=== PATIENT | female | born 1970 | race Caucasian/White ===

== ENCOUNTER 2018-03-17 09:42 | Day surgery (SDC) | payer OTHER, SELFPAY ==
[2018-03-10 11:31] VITALS: BP 154/94; PULSE 86; RESP 16; TEMP 36.7; O2SAT 98; BMI 31.6
--- NOTE | 2018-03-10 11:57 | SDCEKG_ITS ---
Test Reason : Blood Pressure : / mmHG Vent. Rate : 082 BPM Atrial Rate : 082 BPM P-R Int : 170 ms QRS Dur : 136 ms QT Int : 424 ms P-R-T Axes : 027 -35 081 degrees QTc Int : 495 ms Normal sinus rhythm Left axis deviation Left bundle branch block Abnormal ECG Confirmed by ANATOLY HAYDEN, CHARMAINE ([id number]), editor map PARKER HAND ([id number]) on 03/15/2018 2:12:15 PM Referred By: Samia Chan Confirmed By:CHARMAINE LEDBETTER MD
[2018-03-10 12:36] LABS: Hematocrit 38.8 % (37-47); Hemoglobin 13.4 g/dl (12.0-15.0); Mean Corp Hgb Conc 34.5 g/gl (32-36); Mean Corpuscular Hgb 30.9 pg (27.0-32.0); Mean Corpuscular Volume 89.6 fL (81-99); Mean Platelet Vol. 9.5 fl (6.2-12.0); Platelet Count 275 K/mm3 (150-450); RBC Distribution Width CV 12.7 % (11.6-14.6); RBC Distribution Width SD 40.8 fl (35.1-43.9); Red Blood Count 4.33 M/mm3 (4.2-5.4); Scan Indicated on CBC? Y/N NO; White Blood Count 5.7 K/mm3 (4.4-11.0)
[2018-03-10 13:12] LABS: Hemoglobin A1c 6.7 % (4.2-6.3)
[2018-03-10 13:16] LABS: Anion Gap 7 (5-15); BUN 14 mg/dL (7-18); BUN/Creat Ratio 15.9 RATIO (10-20); Calcium,Total 8.9 mg/dL (8.5-10.1); Chloride 101 mmol/L (98-107); Creatinine, Serum 0.88 mg/dL (0.55-1.02); EST Glomerular Filtration Rate 73 mL/min (>60); Est Glom Filt Rate - Afr Amer 89 mL/min (>60); Estimated Creatinine Clearance 63.18 ml/min; Glucose 126 mg/dL (74-106); Potassium 3.6 mmol/L (3.5-5.1); Sodium Level 136 mmol/L (136-145)
[2018-03-17] VITALS (10 sets, daily range): BP systolic 122–143; BP diastolic 73–97; PULSE 90–106; RESP 16; TEMP 36.4–37.3; O2SAT 95–100; BMI 31.6; BMI 31.8
--- NOTE | 2018-03-17 06:00 | HP.PCM_ITS ---
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 Required: No Is patient in pain?: No Allergies shellfish derived Allergy (Severe, Verified 12/23/17 12:01) Anaphylaxis codeine Allergy (Mild, Verified 12/23/17 12:01) Nausea/Vom/Diarrhea Medications hydrochlorothiazide 12.5 mg tablet 12.5 mg PO DAILY 12/23/17 [History Confirmed 12/23/17] lisinopril 10 mg tablet 10 mg PO DAILY 12/23/17 [History Confirmed 12/23/17] ondansetron HCl 4 mg tablet 4 mg PO BID-TID PRN 12/23/17 [History Confirmed 12/23/17] ranitidine 150 mg tablet 150 mg PO DAILY 12/23/17 [History Confirmed 12/23/17] rizatriptan 10 mg tablet 10 mg PO ONCE 12/23/17 [History Confirmed 12/23/17] Is last menstrual period known: Yes Last Menstral Period: 12/11/17 Post menopausal: No Patient : No : No PFSH Medical History GERD (gastroesophageal reflux disease) (Acute) Hyperglycemia (Acute) Hyperlipemia (Acute) Raynaud disease (Acute) Retinal vein occlusion of right eye (Acute) TIA (transient ischemic attack) (Acute ~2012) Uterine Ablation (Acute ~2003) Hypertension (Chronic) Surgical History H/O section (Acute ~2002) H/O wisdom tooth extraction (Acute) History of tonsillectomy (Acute) History of tubal ligation (Acute ~2002) Family History Grandfather CVA (cerebral vascular accident) Father Hypertension Combined hyperlipidemia Social History adopted: No household members: family housing: house number of children: 2 current occupational status: employed 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 occupation: [employer] 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 she has periods that are regular, has a history of heavy menses that improved with the ablation but now over the last 9-12 months she has developed lower pelvic pain and significant dyspareunia. she was checked by GI and it was not felt to be the source of her pain Female Reproductive History Last Menstral Period: 12/11/17 Pregancy History 2 Elective abortions Hx Para 2 Spontaneous abortions Hx # Term Pregnancies Ectopic pregnancies Hx # Pregnancies Multiple births # of living children 2 Past Pregnancies Del. Date Name GA/Weeks Outcome Route Bth Weight Gen Labor Lgth Anesthesia Del Locatn Provider FOB Unknown 2000- Radha 38 live - full term 6lbs 6oz Female epidural [facility]- [facility] Unknown 2002- Dom 38 live - full term 8lbs 2oz Male epidural [facility] Delivery Date: On 12/23/17 @ 12:09 Ashley Aguayo GDM, extended labor resulted in C/S Delivery Date: On 12/23/17 @ 12:07 Ashley Aguayo GDM ROS Const Constitutional: Denies poor appetite, headache(s), fever(s), increased appetite, weight gain, weight loss or fatigue ENT ENT: Denies dry mouth GI GI: Reports as per HPI; denies vomiting, nausea, abdominal pain or constipation : Denies nipple discharge Skin Skin/Breast: Denies hair loss, change in hair, dry skin, breast pain, breast skin changes, breast lump or nipple discharge Exam Const General: cooperative, healthy appearing, comfortable, no acute distress, well developed Nutritional Appearance: average body habitus Orientation: alert HENAK Head: normal to inspection, normocephalic Ears: hearing grossly normal bilaterally, external ears normal Nose: external nose normal, nares normal Face and sinus: normal facial exam Neck Neck: normal visual inspection, trachea midline, no lymphadenopathy Thyroid: thyroid normal Resp Effort & Inspection: normal respiratory effort Musc Other: gross motor intact no deficits, full bilateral strength Skin General: no rashes or lesions noted Neuro Motor: muscle tone normal throughout Assessment & Plan Problems 1. Chronic female pelvic pain R10.2; G89.29 plan lavh bs cysto Plan plan lavh bs cysto. discussed surgical risks including risks of anesthesia, infection, bleeding, injury to bowel, bladder or blood vessels, and patient wishes to proceed with surgery.
[2018-03-17] MEDS: Acetaminophen 500 MG Tablet 1000 MG PO ×2 (10:28→17:48)
[2018-03-17] MEDS: Gabapentin 600 MG Tablet PO (10:29)
[2018-03-17] MEDS: Phenazopyridine 95 MG Tablet 190 MG PO (10:29)
[2018-03-17] MEDS: Celecoxib 200 MG Capsule 400 MG PO (10:29)
[2018-03-17] MEDS: Scopolamine 1mg/72hr Patch 1 PATCH TRANSDERM. (10:31)
[2018-03-17] MEDS: Enoxaparin 40 MG/0.4 ML Syringe SC (10:33)
[2018-03-17 10:50] LABS: Bedside Glucose 185 mg/dL (70-110)
--- NOTE | 2018-03-17 12:00 | HYST_PTH ---
PATIENT: YONATAN SALINAS LOC: [facility] [place] U#:[id number] AGE/SX: 47/F ROOM: RE03/17/[address]: Dr. Samia Chan MD : [id number] BED: DIS: 03/17/2018 SPEC #: [id number] RECD: 03/17/18 16:06 STATUS: MAGGIE RELaury #: [id number] WENDY: 03/17/18 12:[address]: Samia Chan DEPT: SURGICAL PATHOLOGY RECD BY: Schuyler Faustin ENTERED: 03/18/18 08:21 SP TYPE: HYSTERECT OTHR DR: Dr. Remigio Arguelles MD Tissues: Uterus, NOS Procedures: Surgery Specimen Level V HEADER OPERATION: ERAS, hysterectomy, lap-assisted vaginal, salpingectomy PRE-OP DIAGNOSIS: Uterine fibroid, chronic pelvic pain TISSUE SUBMITTED: Uterus, fallopian tubes MICROSCOPIC DIAGNOSIS Uterus and bilateral fallopian tubes, vaginal hysterectomy and bilateral salpingectomy: Cervix - mild chronic cystic cervicitis. Endometrium - early secretory endometrium. Myometrium - intramural leiomyoma (1 cm in diameter). Bilateral fallopian tubes - no pathologic diagnosis. SJ:[place] 03/21/18 MICROSCOPIC DESCRIPTION Slides are reviewed. GROSS DESCRIPTION Received in fixative is one container labeled with the patient's name and designated uterus. The specimen consists of a uterus with attached cervix and attached right and left fallopian tubes. The uterus with cervix measures 8.5 x 7.5 x 4 cm and weighs 117 gm. The specimen has previously been opened along its anterior surface. The endocervical canal measures 3 cm in length and is grossly unremarkable. The elongated endometrial cavity measures 4 cm in length and 2.2 cm in greatest width. The endometrium is reddish-long and measures up to 0.1 cm in thickness. Sections reveal a firm, long-white rubbery nodule measuring 1 cm in diameter and grossly consistent with leiomyoma. The right and left fallopian tubes are similar in appearance and have average lengths of 5 cm and average diameters of 0.5 cm. The fimbriated ends have normal villous appearance. Doughnut Machine Operator sections are submitted in nine cassettes as follows: 1 - anterior cervix, 2 - posterior cervix, 3 & 4 - anterior uterine wall, 5 & 6 - posterior uterine wall, 7 - myometrial mass, 8 - right fallopian tube, 9 - left fallopian tube. / AM:[place] 03/18/18 TC:1 [facility]: [id number]
[2018-03-17] MEDS: Lidocaine/D5W 2,000 MG/250 ML IV.SOLN 2000 MG (13:30)
--- NOTE | 2018-03-17 13:38 | OP.PCM_ITS ---
Problem List (1) Uterine fibroid Status: Acute (2) Chronic female pelvic pain Status: Chronic Comment: plan lavh bs cysto Report of Operation Date of Procedure: 03/17/18 Pre-Operative Diagnosis: aub pelvic pain Post-Operative Diagnosis: same Surgery/Procedure Performed:: lavh bs cysto Description of Surgical Findings:: nl uterus with fibroids and normal ovaries cheese sprayer: Linda Hoff Type of Anesthesia:: General Special Medications: cefoxitin Specimen's removed: uterus tubes Drains: simeon Estimated Blood Loss (mL): 100cc Fluids Replaced: crystalloid Description of Procedure: 1 patient received preoperative antibiotics and SCDs were on preoperatively. Patient was taken back to the operating room and placed in the dorsal lithotomy position. General anesthesia was induced and patient was prepped and draped in normal sterile fashion. Uterine manipulator was placed inside the uterus and Simeon catheter placed in the bladder. The umbilicus was grasped with towel clamps and an intraumbilical incision was made after injecting with quarter percent Marcaine and a Veress needle entered into the abdomen confirmed to be intra-abdominal with a low opening pressure. Abdomen was insufflated with CO2 gas and the Veress needle removed and the 5 mm trocar was placed under direct visualization without complication. Right and left lower quadrants were transilluminated and injected with quarter percent Marcaine and 5 mm ports placed under direct visualization. Pelvis was well visualized see operative f indings for additional information. Bilateral fallopian tubes were identified and transected with the LigaSure device across the mesosalpinx to the level of the utero-ovarian ligament which was also transected with the LigaSure device. The broad ligament was opened up by transecting the round ligament bilaterally and skeletonizing the uterine vessels bilaterally and creating a bladder flap using the LigaSure device. The uterine arteries were transected bilaterally with good visualization of the bladder and the ureters were seen to be inferior lateral to the operative area. Attention was then paid to the vaginal portion of the procedure and the cervix was grasped with April clamps and circumferentially injected with dilute vasopressin. A circumferential incision was made and the vaginal mucosa was mobilized off posteriorly and the cul-de-sac entered into sharply and a longneck speculum placed. The anterior cul-de-sac was then identified and entered into sharply. The uterosacral ligaments were clamped cut and suture ligated with 0 Monocryl bilaterally followed by the cardinal ligaments which were clamped cut and suture ligated bilaterally with 0 Monocryl. The uterus serially descended and was removed without difficulty with minimal morcellation. Pelvic sidewall pedicles were checked and noted to have excellent hemostasis. The vaginal mucosa was reapproximated incorporating the posterior peritoneum. This was reapproximated using 0 Vicryl [id number] sutures. Excellent hemostasis was noted. The cystoscopy was then performed and bilateral ureteral strong spray was noted and the bladder was noted to have no abnormality or lesions seen. Simeon catheter was replaced and then attention paid to the abdominal portion of the procedure again. The pelvis and cul-de-sac was well visualized and no significant active bleeding noted . Pressure was taken down and the areas visualized and noted of excellent hemostasis. All ports were removed under direct visualization without complication and the abdomen was desufflated of air. The instruments removed from the abdomen and the vagina vaginal sweep was negative. Port sites on the abdomen were closed with 4-0 Monocryl interrupted sutures and Steri's and windows were applied. She was awoken and taken recovery in stable condition. Grafts/Implants Used: none - Complications none - Admit VTE Documentation VTE Present on Admission: No VTE Mechan Device Prophylaxis: SCD's
--- NOTE | 2018-03-17 13:44 | DCINST_ITS ---
Discharge Diet: No Restrictions Discharge Activity: Return to Normal Activity, May Not Drive, May Shower May resume sexual activity in: 6-8 weeks Call your doctor if your incision/area has: Continuous Slow Oozing, Sudden Increased Bleeding, Increased Pain/ Swelling, Increased Redness, Foul Smelling Discharge Call your doctor if you observe: Fever of 101 or Higher, Inability to urinate, Inability to have a bowel movement, Using more than one pad per hour Allergies/Adverse Reactions: Allergies shellfish derived Allergy (Severe, Verified 03/10/18 11:06) Anaphylaxis codeine Adverse Reaction (Mild, Verified 03/16/18 16:44) Nausea/Vom/Diarrhea Medications to take at Discharge hydrochlorothiazide 12.5 mg tablet 12.5 mg PO DAILY 12/23/17 lisinopril 10 mg tablet 10 mg PO DAILY 12/23/17 ondansetron HCl 4 mg tablet 4 mg PO BID-TID PRN 12/23/17 ranitidine 150 mg tablet 300 mg PO BID 12/23/17 rizatriptan 10 mg tablet 10 mg PO ONCE PRN 12/23/17 Multivit,Calc,Mins/Iron/Folic [Women's Daily Formula Caplet] 1 each PO DAILY 03/10/18 Naproxen [Naprosyn] 250 - 500 mg PO Q8H PRN PRN #30 tablet 03/17/18 Oxycodone HCl/Acetaminophen [Percocet 5-325] 1 - 2 tablet PO Q4H PRN PRN 7 Days #15 tablet 03/17/18 The following prescriptions were given: Oxycodone HCl/Acetaminophen [Percocet 5-325] 1 - 2 tablet PO Q4H PRN PRN 7 Days #15 tablet PRN Reason: Pain Naproxen [Naprosyn] 250 - 500 mg PO Q8H PRN PRN #30 tablet PRN Reason: MILD PAIN Primary Care Physician: Remigio Arguelles MD [Primary Care Provider] - Test Results: Test results from this visit will be discussed in further detail at your follow- up appointment, if applicable. Please Follow Up With: Samia Chan MD - [phone]
[2018-03-17] MEDS: Bupivacaine 0.25% 30 ML Vial (14:20)
[2018-03-17] MEDS: Vasopressin 20 UNITS/ML Vial (14:20)
[2018-03-17 15:36] LABS: Bedside Glucose 157 mg/dL (70-110)
[2018-03-17] MEDS: Ketorolac 15 MG/ML Vial IV (15:41)
[2018-03-17] MEDS: Lactated Ringers 1,000 ML 100 ML IV (17:02)
--- NOTE | 2018-03-17 17:59 | NURSING ---
Nurse assists pt. up to chair.
== END 2018-03-17 21:45 | disposition home or self-care (01) ==
LOC: SDC 09:43 → AC 09:44 → MS3 13:35
PROVIDERS: Anesthesiology; Family Provider Family Medicine; PCP Family Medicine; Referring Provider Obstetrics & Gynecology; Visit Provider Obstetrics & Gynecology
PROC: 0UT9FZZ Resection of Uterus, Via Natural or Artificial Opening With Percutaneous Endoscopic Assistance (ICD-10-PCS; CPT 52000; principal; 2018-03-17 11:35)
DX: D25.1 Intramural leiomyoma of uterus (principal); N72 Inflammatory disease of cervix uteri; K21.9 Gastro-esophageal reflux disease without esophagitis; E78.5 Hyperlipidemia, unspecified; I73.00 Raynaud's syndrome without gangrene; Z86.73 Personal history of transient ischemic attack (TIA), and cerebral infarction without residual deficits; I10 Essential (primary) hypertension; Z79.899 Other long term (current) drug therapy
CPT/HCPCS: 52000; 58552; 36415; 80048; 82962; 83036; 85027; 86850; 86900; 88307; 93005; J7050; J7120; J2405

== ENCOUNTER 2018-06-09 16:50 | Outpatient (RCR) | payer OTHER, SELFPAY ==
[2018-04-25 15:22] VITALS: BMI 31.8
== END 2018-06-09 23:59 ==
LOC: DC 16:50
PROVIDERS: Family Provider Family Medicine; PCP Family Medicine; Visit Provider Family Medicine
DX: E11.9 Type 2 diabetes mellitus without complications (principal)
CPT/HCPCS: G0108

== ENCOUNTER 2018-06-21 14:58 | Outpatient (RCR) | payer OTHER, SELFPAY ==
[2018-04-25 15:22] VITALS: BMI 31.8
== END 2018-07-10 23:59 ==
LOC: DC 14:58
PROVIDERS: Family Provider Family Medicine; PCP Family Medicine; Visit Provider Family Medicine
DX: E11.9 Type 2 diabetes mellitus without complications (principal); Z71.3 Dietary counseling and surveillance
CPT/HCPCS: 97802

== ENCOUNTER 2018-09-07 16:51 | Outpatient (RCR) | payer OTHER, SELFPAY ==
[2018-04-25 15:22] VITALS: BMI 31.8
== END 2018-09-09 23:59 ==
LOC: DC 16:51
PROVIDERS: Family Provider Family Medicine; PCP Family Medicine; Visit Provider Family Medicine
DX: E11.9 Type 2 diabetes mellitus without complications (principal); Z71.3 Dietary counseling and surveillance
CPT/HCPCS: 97803

== ENCOUNTER 2018-11-07 17:00 | Outpatient (RCR) | payer OTHER, SELFPAY ==
[2018-04-25 15:22] VITALS: BMI 31.8
== END 2018-11-09 23:59 ==
LOC: DC 17:00
PROVIDERS: Family Provider Family Medicine; PCP Family Medicine; Visit Provider Family Medicine
DX: E11.9 Type 2 diabetes mellitus without complications (principal); Z71.3 Dietary counseling and surveillance
CPT/HCPCS: 97803

== ENCOUNTER 2018-12-06 17:17 | Outpatient (RCR) | payer OTHER, SELFPAY ==
[2018-04-25 15:22] VITALS: BMI 31.8
== END 2018-12-10 23:59 ==
LOC: DC 17:17
PROVIDERS: Family Provider Family Medicine; PCP Family Medicine; Visit Provider Family Medicine
DX: E11.9 Type 2 diabetes mellitus without complications (principal); Z71.3 Dietary counseling and surveillance
CPT/HCPCS: 97803

== ENCOUNTER 2019-01-09 16:43 | Outpatient (RCR) | payer OTHER, SELFPAY ==
[2018-04-25 15:22] VITALS: BMI 31.8
== END 2019-01-09 23:59 ==
LOC: DC 16:43
PROVIDERS: Family Provider Family Medicine; PCP Family Medicine; Visit Provider Family Medicine
DX: E11.9 Type 2 diabetes mellitus without complications (principal); Z71.3 Dietary counseling and surveillance
CPT/HCPCS: 97803

== ENCOUNTER 2019-02-14 16:37 | Outpatient (RCR) | payer OTHER, SELFPAY ==
[2018-04-25 15:22] VITALS: BMI 31.8
== END 2019-03-11 23:59 ==
LOC: DC 16:37
PROVIDERS: Family Provider Family Medicine; PCP Family Medicine; Visit Provider Family Medicine
DX: Z71.3 Dietary counseling and surveillance (principal); E11.9 Type 2 diabetes mellitus without complications
CPT/HCPCS: 97803

== ENCOUNTER 2019-03-14 16:52 | Outpatient (RCR) | payer OTHER, SELFPAY ==
[2018-04-25 15:22] VITALS: BMI 31.8
== END 2019-04-11 23:59 ==
LOC: DC 16:52
PROVIDERS: Family Provider Family Medicine; PCP Family Medicine; Visit Provider Family Medicine
DX: Z71.3 Dietary counseling and surveillance (principal); E11.9 Type 2 diabetes mellitus without complications
CPT/HCPCS: 97803

== ENCOUNTER 2019-04-17 08:20 | Outpatient (RCR) | payer OTHER, SELFPAY ==
[2018-04-25 15:22] VITALS: BMI 31.8
== END 2019-05-12 23:59 ==
LOC: DC 08:20
PROVIDERS: Family Provider Family Medicine; PCP Family Medicine; Visit Provider Family Medicine
DX: Z71.3 Dietary counseling and surveillance (principal); E11.9 Type 2 diabetes mellitus without complications
CPT/HCPCS: 97803

== ENCOUNTER 2019-06-26 17:01 | Outpatient (RCR) | payer OTHER, SELFPAY ==
[2018-04-25 15:22] VITALS: BMI 31.8
== END 2019-07-11 23:59 ==
LOC: DC 17:01
PROVIDERS: Family Provider Family Medicine; PCP Family Medicine; Visit Provider Family Medicine
DX: Z71.3 Dietary counseling and surveillance (principal); E11.9 Type 2 diabetes mellitus without complications
CPT/HCPCS: 97803

== ENCOUNTER 2019-07-31 16:00 | Outpatient (RCR) | payer OTHER, SELFPAY ==
[2018-04-25 15:22] VITALS: BMI 31.8
== END 2019-08-10 23:59 ==
LOC: DC 16:00
PROVIDERS: Family Provider Family Medicine; PCP Family Medicine; Visit Provider Family Medicine
DX: Z71.3 Dietary counseling and surveillance (principal); E11.9 Type 2 diabetes mellitus without complications
CPT/HCPCS: G0270

== ENCOUNTER 2019-09-05 16:17 | Outpatient (RCR) | payer OTHER, SELFPAY ==
[2018-04-25 15:22] VITALS: BMI 31.8
== END 2019-09-05 23:59 | disposition home or self-care (01) ==
LOC: DC 16:17
PROVIDERS: Family Provider Family Medicine; PCP Family Medicine; Visit Provider Family Medicine
DX: Z71.3 Dietary counseling and surveillance (principal); E11.9 Type 2 diabetes mellitus without complications
CPT/HCPCS: G0270

== ENCOUNTER → 2022-05-02 | Outpatient (CLI) | payer OTHER, SELFPAY ==
[2022-05-02 10:16] LABS: Absolute Lymphocyte Count 1.75 X10^3/uL (0.83-4.51); Absolute Neutrophil Count 3.1 X10^3/uL (2.0-7.7); Basophil# 0.07 X10^3/uL; Basophil% 1.2 % (0-1); Eosinophil# 0.19 X10^3/uL; Eosinophils% 3.3 % (0-5); Hematocrit 42.5 % (37-47); Hemoglobin 14.5 g/dL (12.0-15.0); Lymphocyte # 1.75 X10^3/ul (0.83-4.51); Lymphocyte % 30.6 % (19-41); Mean Corp Hgb Conc 34.1 g/dL (32-36); Mean Corpuscular Hgb 29.8 pg (27.0-32.0); Mean Corpuscular Volume 87.3 fL (81-99); Mean Platelet Vol. 9.8 fl (6.2-12.0); Monocyte% 10.5 % (0-10); NRBC Flagged by Analyzer 0 % (0-5); Neutrophil % 54.2 % (47-70); Platelet Count 334 K/mm3 (150-450); RBC Distribution Width CV 11.9 % (11.6-14.6); RBC Distribution Width SD 37.9 fl (35.1-43.9); Red Blood Count 4.87 M/mm3 (4.2-5.4); White Blood Count 5.7 K/mm3 (4.4-11.0)
[2022-05-02 10:50] LABS: Hemoglobin A1c 5.9 % (3.8-5.6)
[2022-05-02 10:51] LABS: ALB/GLOB Ratio 1.2 RATIO (0.9-2.4); AST(SGOT) 18 U/L (15-37); Alanine Aminotransfer ALT/SGPT 41 U/L (13-56); Alkaline Phosphatase 82 U/L (45-117); Anion Gap 8 (5-15); BUN 12 mg/dL (7-18); BUN/Creat Ratio 11.7 RATIO (10-20); Calcium,Total 8.8 mg/dL (8.5-10.1); Chloride 105 mmol/L (98-107); Cholesterol 123 mg/dL (200); Creatinine, Serum 1.03 mg/dL (0.55-1.02); EST Glomerular Filtration Rate 60 mL/min (>60); Est Glom Filt Rate - Afr Amer 73 mL/min (>60); Free T3 2.8 pg/mL (2.18-3.98); Globulin 3.2 g/dL (2.2-4.2); Glucose 132 mg/dL (74-106); High Density Lipoprotein 38 mg/dL; Potassium 3.6 mmol/L (3.5-5.1); Protein, Total 7.2 g/dL (6.4-8.2); Sodium Level 140 mmol/L (136-145); T4 Free Direct 1.02 ng/dL (0.76-1.46); Thyroid Stim Hormone (TSH) 1.79 uIU/mL (0.358-3.74); Triglycerides 101 mg/dL; Very Low Density Lipoprotein 20 mg/dL (5-40)
[2022-05-04 08:54] LABS: Insulin 11.8 mU/L (2.6-37.6); Vitamin D,25 Hydroxy 36.7 ng/mL
[2022-05-04 18:41] LABS: C-Peptide 3.9 ng/mL (1.1-4.4)
== END | disposition home or self-care (01) ==
LOC: LAB 09:28
PROVIDERS: PCP Internal Medicine; Referring Provider Internal Medicine; Visit Provider Internal Medicine
DX: I10 Essential (primary) hypertension (principal); E11.9 Type 2 diabetes mellitus without complications; K21.9 Gastro-esophageal reflux disease without esophagitis; E88.81 Metabolic syndrome and other insulin resistance
CPT/HCPCS: 36415; 80053; 80061; 82306; 83036; 83525; 84439; 84443; 84481; 84681; 85025

== ENCOUNTER → 2023-05-31 | Outpatient (CLI) | payer OTHER, SELFPAY ==
--- OUTSIDE RECORDS SUMMARY | 2023-05-31 09:03 | XMS RPT_ITS | CCD ---
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 Name Role Phone ELIS ALEXEYROBERT ISSA Attending Unavailable MCKENZIE PATEL Referring Unav ailable FELIPE ARGUELLES Primary Care Unavailable Felipe Arguelles Primary Care Provider Felipe Arguelles MD Primary Care Provider [facility], [place] Unavailable Felipe Arguelles MD Primary Care Provider [facility], [place] Unavailable Felipe Arguelles MD Primary Care Provider [facility], [place] Unavailable Felipe Arguelles MD Primary Care Provider [facility], [place] Unavailable CHAU JOVEL Referring Unavailab FELIPE Kohler Primary Care Unavailable FELIPE ARGUELLES Primary Care Unavailable CHAU JOVEL Referring Unavailab CHAU Fowler Attending Unavailab le FELIPE ARGUELLES Primary Care Unavailable CHAU JOVEL Attending Unavailab le Allergies Allergy Classification Reported Allergen(s) Allergy Type Date of Onset Reaction(s) Facility (15 sources) Codeine; Translations: [Unknown] Drug Allergy 5 Vomiting [facility] Repository (2 sources) SHELLFISH CONTAINING PRODUCTS; Translations: [SHELLFISH CONTAINING PRODUCTS] Propensity to adverse reactions to drug (disorder) 0 [facility] Repository (13 sources) atorvastatin; Translations: [ATORVASTATIN] Drug Allergy 0 Myalgia [facility] Work Phone: (13 sources) Shellfish; Translations: [SHELLFISH DERIVED] Drug Allergy 7 Swelling [facility] Work Phone: Medications Current Medications Medication Drug Class(es) Dates Sig (Normalized) Sig (Original) 0.5 ml dulaglutide 1.5 mg/ml auto-injector (11 sources) GLP-1 Receptor Agonist Start: 02-21-2021 End: 10-30-2022 inject 0.75 mg by subcutaneous injection every week dulaglutide (TRULICITY) 0.75 mg/0.5 mL pen injector Indications: Controlled type 2 diabetes mellitus without complication, without long-term current use of insulin (HCC) Inject 0.75 mg subcutaneously one time a week. Inject dose once per week. Discard Pen After 6 mL 3 10/30/2021 10/30/2022 Active Completed/Discontinued Medications Medication Drug Class(es) Dates Sig (Normalized) Sig (Original) aspirin 81 mg delayed release oral tablet (11 sources) Platelet Aggregation Inhibitor, Nonsteroidal Anti-inflammatory Drug Start: 06-13-2018 take 1 tablet by mouth once daily aspirin, enteric coated (ECOTRIN LOW STRENGTH) 81 mg EC tablet Take 1 tablet by mouth once daily. 0 06/13/2018 Active Problems Active Problems Problem Classification Problem Date Documented Date Episodic/Chronic Adjustment disorders (11 sources) Adjustment disorder; Translations: [Adjustment disorder, unspecified] Onset: 03-31-2013 03-31-2013 Chronic Conduction disorders (14 sources) Left bundle branch block; Translations: [Left bundle-branch block, unspecified] Onset: 03-11-2018 03-11-2018 Chronic Diabetes mellitus without complication (15 sources) Type 2 diabetes mellitus without complication; Translations: [Type 2 diabetes mellitus without complications] Onset: 03-11-2018 03-11-2018 Chronic Disorders of lipid metabolism (17 sources) Hyperlipidemia; Translations: [Hyperlipidemia, unspecified] Onset: 06-27-2012 06-27-2012 Chronic Esophageal disorders (20 sources) Gastroesophageal reflux disease; Translations: [Gastro-esophageal reflux disease without esophagitis] Onset: 06-27-2012 06-27-2012 Chronic Essential hypertension (16 sources) Essential hypertension; Translations: [Essential (primary) hypertension] Onset: 05-03-2017 05-03-2017 Chronic Headache; including migraine (11 sources) Migraine without aura; Translations: [Migraine without aura, not intractable, without status migrainosus] Onset: 10-06-2007 05-10-2017 Chronic Nutritional deficiencies (12 sources) Vitamin D deficiency; Translations: [Vitamin D deficiency, unspecified] Onset: 06-20-2013 06-20-2013 Chronic Other circulatory disease (11 sources) Raynaud's phenomenon; Translations: [Raynaud's syndrome without gangrene] Onset: 06-27-2012 06-27-2012 Chronic Other lower respiratory disease (2 sources) Dyspnea on exertion; Translations: [Other forms of dyspnea] Episodic Other nervous system disorders (1 source) Paresthesia of hand ; Translations: [Numbness and tingling in right hand] Episodic Other screening for suspected conditions (not mental disorders or infectious disease) (3 sources) Patient encounter status; Translations: [Encounter for other screening for malignant neoplasm of breast] Episodic Retinal detachments; defects; vascular occlusion; and retinopathy (11 sources) Hemorrhage of left retina; Translations: [Retinal hemorrhage, left eye] Onset: 03-21-2009 03-21-2009 Chronic Transient cerebral ischemia (11 sources) Transient cerebral ischemia; Translations: [Transient cerebral ischemic attack, unspecified] Onset: 02-24-2012 02-24-2012 Chronic Past or Other Problems Problem Classification Problem Date Documented Da te Episodic/Chronic Other acquired deformities (11 sources) Spondylolysis; Translations: [Spondylolysis, site unspecified] Onset: 09-24-2015 09-24-2015 Episodic Other gastrointestinal disorders (10 sources) Alteration in bowel elimination; Translations: [Change in bowel habit] Onset: 11-26-2017 11-26-2017 Episodic Other gastrointestinal disorders (11 sources) Diarrhea; Translations: [Diarrhea, unspecified] Onset: 11-26-2017 11-26-2017 Episodic Other gastrointestinal disorders (1 source) Altered bowel function; Translations: [Change in bowel habit] Onset: 11-26-2017 11-26-2017 Episodic Other skin disorders (11 sources) Acne; Translations: [Other acne] Onset: 08-15-2007 08-15-2007 Episodic Other skin disorders (11 sources) Hirsutism; Translations: [Hirsutism] Onset: 10-06-2007 10-06-2007 Episodic Spondylosis; intervertebral disc disorders; other back problems (11 sources) Chronic low back pain; Translations: [Chronic bilateral low back pain without sciatica] Onset: 09-24-2015 09-24-2015 Episodic Results Test Name Value Interpretation Reference Range Facil ity Vital Signs Date Time Vital Sign Value Performing Clinician Ottoniel buchanan 01-14-2022 14:44-0400 Body height 160 cm Chau Jovel DO Work Phone: [facility] 01-14-2022 14:44-0400 Body weight 74.84 kg Chau Jovel DO Work Phone: [facility] 01-14-2022 14:44-0400 Diastolic blood pressure 82 mm[Hg] Chau Jovel DO Work Phone: [facility] 01-14-2022 14:44-0400 Heart rate 95 /min Chau Jovel DO Work Phone: [facility] 01-14-2022 14:44-0400 SaO2% (BldA) [Mass fraction] 100 % Chau Jovel DO Work Phone: [facility] 01-14-2022 14:44-0400 Systolic blood pressure 126 mm[Hg] Chau Jovel DO Work Phone: [facility] Encounters Encounter Date Encounter Type Care Provider Facility Start: 05-10-2023 End: 05-10-2023 ambulatory FELIPE ARGUELLES Facility:[facility] Start: 04-26-2023 End: 04-26-2023 ambulatory CHAU JOVEL Facility:[facility] Start: 02-03-2023 ambulatory Felipe Arguelles MD Work Phone: [facility] Start: 02-01-2023 End: 02-01-2023 ambulatory FELIPE ARGUELLES Facility:[facility] Start: 02-21-2022 Refill Felipe Arguelles MD Work Phone: [facility] [place] Procedures Date Procedure Procedure Detail Performing Clinician Start: 02-10-2022 Myocardial spect mul tiple studies Chau Jovel DO Work Phone: Start: 12-24-2021 End: 12-24-2021 Screening mammography bi 2-view breast inc cad Felipe Arguelles MD Work Phone: Start: 07-11-2021 Lipid panel [facility] Start: 11-05-2020 Mammography Felipe Sanford MD Work Phone: Start: 11-13-2019 Follow-up visit Start: 10-25-2019 Follow-up visit Start: 10-19-2019 Follow-up visit Start: 09-25-2019 Adult depression scr eening assessment Felipe Arguelles MD Work Phone: Start: 12-06-2017 Colonoscopy Felipe Sanford MD Work Phone: Plan of Treatment Date Care Activity Detail Author Start: 12-07-2027 Colonoscopy COLONOSCOPY [facility] Start: 12-07-2027 COLORECTAL CANCER SCREENING COLORECTAL CANCER SCREENING [facility] Start: 02-02-2024 BP Controlled (<130/80) BP Controlled (<130/80) [facility] Start: 01-17-2023 Hepatitis C antibody, confirmatory test DILATED RETINAL EXAM [facility] Start: 12-24-2022 Mammography [facility] Start: 12-11-2022 Covid-19 Vaccine ( season) Covid-19 Vaccine () [facility] Start: 12-11-2022 Influenza [facility] Start: 09-23-2022 ANNUAL PCP TEAM CHRONIC DISEASE VISIT ANNUAL PCP TEAM CHRONIC DISEASE VISIT [facility] Start: 07-11-2022 Hepatitis B surface antibody level LDL CHOLESTEROL [facility] Start: 06-30-2022 ANNUAL PCP TEAM CHRONIC DISEASE VISIT ANNUAL PCP TEAM CHRONIC DISEASE VISIT [facility] Start: 04-12-2022 Depression Assessment Depression Assessment [facility] Start: 03-17-2022 3 comp foot exam completed DIABETIC FOOT EXAM [facility] Start: 03-12-2022 Hepatitis B screening URINE ALBUMIN:CREATININE RATIO [facility] Start: 12-11-2021 Influenza vaccination [facility] Start: 11-05-2021 Mammography MAMMOGRAM [facility] Start: 10-22-2021 COVID-19 VACCINE (4 - Booster for Pfizer series) COVID-19 VACCINE (4 - Booster for Pfizer series) [facility] Start: 10-22-2021 SHINGRIX VACCINE (1 of 2) SHINGRIX VACCINE (1 of 2) [facility] Start: 09-23-2021 End: 11-23-2021 25-hydroxyvitamin D3 [Mass/volume] in Serum or Plasma VITAMIN D 25 HYDROXY Lab Routine Vitamin D deficiency Expected: 09/23/2021, Expires: 11/23/2021 [facility] Work Phone: Immunizations Immunization Date Immunization Notes Care Provider Fa cili 02-16-2021 COVID-19 vaccine, ag e 12+ yr (PFIZER-BIONTECH - PURPLE TOP) Felipe Arguelles MD Work Phone: [facility] 07-27-2020 COVID-19 vaccine, ag e 12+ yr (PFIZER-BIONTECH - PURPLE TOP) Felipe Arguelles MD Work Phone: [facility] Work Phone: 07-06-2020 COVID-19 vaccine, ag e 12+ yr (PFIZER-BIONTECH - PURPLE TOP) Felipe Arguelles MD Work Phone: [facility] Work Phone: 12-01-2018 influenza virus vaccine, unspecified formulation Felipe Arguelles MD Work Phone: [facility] Payers Date Payer Category Payer Unknown MMO MMO [employer] PPO [id number] 2022-Present [phone] [address] [place] [address] PPO [id number] 2022 Unknown [id number] 2017 Private Health Insurance [id number] 2017 Private Health Insurance AETNA A ETNA CHOICE POS/POSII/PREMIER CARE/PREMIER CARE PLUS xxxxxxxxxx 2017-Present xxxxxxxxxx [id number] 2013 Private Health Insurance AET[employer] A ETNA CHOICE POS II [id number] 2013-Present [phone] [address] [place] [address] POS [id number] 2013 Private Health Insurance AET[employer] A ETNA CHOICE POS II [id number] 2013-Present [phone] [address] [place] [address] POS [id number] 1970 Unknown [id number] Social History Date Type Detail Facility Start: 11-03-[address] [facility] Start: 1970 Sex Assigned At Not on file [facility] Start: 06-20-2021 End: 02-10-2022 Exposure to SARS-CoV-2 (event) Not sure [facility] Start: 03-09-2012 [facility] tobacco [facility] Start: 06-30-2021 End: 01-14-2022 Alcohol intake Current drinker of alcohol (finding) [facility] Start: 09-25-2019 History SDOH Alcohol Frequency 3 [facility] Start: 09-25-2019 End: 03-16-2021 History SDOH Alcohol Std Drinks 2 [facility] Start: 09-25-2019 History SDOH Social Connections Phone 4 [facility] Start: 09-25-2019 History SDOH Social Connections Meetings 1 [facility] Start: 09-25-2019 History SDOH Physica l Activity DPW 6 [facility] Start: 09-25-2019 History SDOH Stress 5 [facility] Start: 09-25-2019 Education 17 [facility] Start: 03-09-2012 Tobacco use and exposure Smoke less tobacco non-user [facility] Start: 09-25-2019 End: 02-01-2023 History of Social function [facility] Start: 09-25-2019 End: 02-01-2023 Social connection and isolation panel [facility] Do you belong to any clubs or organizations such as jewish groups, unions, fraternal or athletic groups, or school groups? No [facility] Are you now , , , , never or living with a partner? [facility] How often to you hav e a drink containing alcohol? 2-4 times a month [facility] How many standard dr inks containing alcohol do you have on a typical day? 3 or 4 [facility] How often do you hav e 6 or more drinks on 1 occasion? Monthly [facility] How hard is it for y ou to pay for the very basics like food, housing, medical care, and heating Not hard at all [facility] Do you feel stress - tense, restless, nervous, or anxious, or unable to sleep at night because your mind is troubled all the time - these days [OSQ] Very much [facility] (I/We) worried wheth er (my/our) food would run out before (I/we) got money to buy more. Never true [facility] Start: 10-24-2018 Sexual orientation Heterosexual (rohit limon) [facility] Medical Equipment Procedure Code Equipment Code Equipment Origin al Text Equipment Identifier Dates Start: 06-06-2021 Clinical Notes 11-29-2017 to 05-10-2023 Telephone Encounter - Latonia Chua LPN - 02/23/2022 10:15 AM SANGITA Sosa - 02/10/2022 8:45 AM EDTTelephone Encounter - Aracelis Beard RN - 02/09/2022 1:24 PM EDT Note Date & Type Note Facility 05-10-2023 Note HNO ID: [id number] Author: CHAU JOVEL, DO Service: ? Author Type: Physician Type: Progress Notes Filed: 05/10/2023 17:10 Note Text: [facility] SECTION [facility]AL CARDIOLOGY [facility] OUTPATIENT VISIT DATE May 10, 2023 HISTORY OF PRESENT ILLNESS: Ms. Salinas is a 52 year old female. The patient returns for follow-up secondary history of chronic left bundle branch block pattern with normal nuclear stress imaging as well as hypertension, hyperlipidemia/hypertriglyceridemi a, previous TIA and type 2 diabetes. She unfortunately has developed myalgias again from her latest statin i.e. pravastatin. She denies chest discomfort, dyspnea, orthopnea, paroxysmal nocturnal dyspnea, palpitations, near-syncope or syncope. PLAN AND RECOMMENDATIONS: The patient remained stable without apparent symptoms of suggest angina or cardiac decompensation. She unfortunately has myalgias again. Will therefore stop pravastatin. Previously, she also off of statin therapy because severely elevated triglycerides for which we will start fenofibrate after a washout from pravastatin. Will follow-up with her in 2 to 3 months time to review response to therapy. Dietary and lifestyle modification was otherwise reemphasized. Vitals: BP 124/80 Pulse 89 Ht 160 cm (5' 2.99 ) Wt 79.1 kg (174 lb 6.1 oz) LMP 11/16/2017 SpO2 99% BMI 30.90 kg/m? Physical Exam Vitals reviewed. Constitutional: Appearance: She is well-developed. HENT: Head: Normocephalic and atraumatic. Eyes: Pupils: Pupils are equal, round, and reactive to light. Neck: Thyroid: No thyromegaly. Vascular: No JVD. Cardiovascular: Rate and Rhythm: Normal rate and regular rhythm. Heart sounds: Normal heart sounds. No murmur heard. No friction rub. No gallop. Pulmonary: Effort: Pulmonary effort is normal. No respiratory distress. Breath sounds: Normal breath sounds. No wheezing or rales. Abdominal: General: Bowel sounds are normal. Palpations: Abdomen is soft. Musculoskeletal: General: Normal range of motion. Cervical back: Normal range of motion and neck supple. Skin: General: Skin is warm and dry. Coloration: Skin is not pale. Neurological: Mental Status: She is alert and oriented to person, place, and time. Cranial Nerves: No cranial nerve deficit. Psychiatric: Behavior: Behavior normal. Thought Content: Thought content normal. Judgment: Judgment normal. Review of Systems Constitutional: Negative for activity change and fatigue. HENT: Negative for ear pain and facial swelling. Eyes: Negative for pain and discharge. Respiratory: Negative for chest tightness and shortness of breath. Cardiovascular: Positive for palpitations. Negative for chest pain and leg swelling. Gastrointestinal: Negative for abdominal pain, blood in stool, nausea and vomiting. Endocrine: Negative for cold intolerance and heat intolerance. Genitourinary: Negative for frequency and hematuria. Musculoskeletal: Negative for arthralgias and gait problem. Skin: Negative for color change, pallor and rash. Allergic/Immunologic: Negative for immunocompromised state. Neurological: Negative for dizziness, syncope, light-headedness and headaches. Hematological: Negative for adenopathy. Does not bruise/bleed easily. Psychiatric/Behavioral: Negative for confusion. The patient is not nervous/anxious. PAST MEDICAL HISTORY Diagnosis Date Abnormal maternal glucose tolerance, antepartum 2000AND 2002 History of gestational diabetes Hyperlipidemia Hypertension, essential 05/03/2017 Migraine Raynaud's phenomenon TIA (transient ischemic attack) 2011 PAST SURGICAL HISTORY Procedure Laterality Date DELIVERY ONLY 2002 , low cervical, Bilateral Tubal Ligation COLONOSCOPY FLX DX W/COLLJ SPEC WHEN PFRMD 12/06/2017 Colonoscopy ESOPHAGOGASTRODUODENOSCOPY TRANSORAL DIAGNOSTIC 08/2012,09/21/2013 EGD ESOPHAGOGASTRODUODENOSCOPY TRANSORAL DIAGNOSTIC 12/06/2017 EGD HYSTERECTOMY HX 03/2018 Kept ovaries LIG/TRNSXJ FLP TUBE ABDL/VAG APPR UNI/BI Tubal ligation PAST SURGICAL HISTORY OF 2004 Uterine Ablation for DUB TONSILLECTOMY PRIMARY/SECONDARY AGE 13/> 1999 Tonsillectomy Social History Tobacco Use Smoking status: Never Smokeless tobacco: Never Substance Use Topics Alcohol use: Yes Comment: SOCIALLY Drug use: No FAMILY HISTORY Problem Relation Age of Onset Asthma Mother Hypertension Father Cancer Paternal Grandmother Pancreatic Breast Cancer Maternal Grandmother Diabetes Maternal Grandfather Stroke Maternal Grandfather Stroke Paternal Grandfather ALLERGIES Allergen Reactions Codeine Vomiting Lipitor [Atorvastat* Myalgia Shellfish Derived Swelling CURRENT MEDICATIONS: Coenzyme Q10 (ULTRA COQ10) 75 mg cap Take by mouth. POTASSIUM ORAL Take by mouth. pravastatin (PRAVACHOL) 20 mg tablet Take 1 tablet by mouth daily at bedtime. lisinopril (ZE (more content not included)... [facility] 02-03-2023 Note Patient Outreach (IN [facility]MM[facility]) SCARLET SALINAS ([id number]) 1970 F Date Time Provider Department 02/03/23 FELIPE ARGUELLES During your visit today, we recorded the following information about you: Allergies As of Date: 02/03/2023 Noted Allergy Reaction CODEINE 02/09/2005 11 - Vomiting LIPITOR (ATORVASTATIN) 12/11/2019 17 - Myalgia SHELLFISH DERIVED 06/01/2016 7 - Swelling Date Reviewed: 02/01/2023 Reviewed by: Chau Jovel DO - Fully Assessed Visit Diagnosis:Encounter for screening mammogram for breast cancer [Z12.31] Order(s):[facility] SCREENING [[id number]] Order #: [id number] FUTURE Prescriptions as of 02/08/2023 - Coenzyme Q10 (ULTRA COQ10) 75 mg cap Take by mouth. - POTASSIUM ORAL Take by mouth. - pravastatin (PRAVACHOL) 20 mg tablet Take 1 tablet by mouth daily at bedtime. - lisinopril (ZESTRIL, PRINIVIL) 20 mg tablet Take 1 tablet by mouth once daily. - dulaglutide (TRULICITY) 0.75 mg/0.5 mL pen injector Inject 0.75 mg subcutaneously one time a week. Inject dose once per week. Discard Pen After - hydroCHLOROthiazide 12.5 mg capsule Take 1 capsule by mouth once daily. - EPINEPHrine (EPIPEN) 0.3 mg/0.3 mL auto-injector Use as directed prn. - blood sugar diagnostic (BLOOD GLUCOSE TEST) test strip Test blood sugar(s) one time daily. Dx: Type 2 DM - Controlled E11.9 Insulin: No - Lancets lancets Test blood sugar(s) one times daily. Dx: Type 2 DM - Controlled E11.9 Insulin: No - Cholecalciferol, Vitamin D3, 25 mcg (1,000 unit) cap Take 1 capsule by mouth once daily. - aspirin, enteric coated (ECOTRIN LOW STRENGTH) 81 mg EC tablet Take 1 tablet by mouth once daily. - MULTIVITS,CA,MINERALS/IRON/FA (ONE-A-DAY WOMENS FORMULA ORAL) Take 1 tablet by mouth once daily. Problem List As Of Date 02/03/2023 Noted Resolved Abnormal maternal glucose tolerance, antepartum* 03/02/2013 ACNE NEC [L70.8] 08/15/2007 HIRSUTISM [L68.0] 10/06/2007 Migraine without aura [G43.009] 10/06/2007 Retinal Hemorrhage of Left Eye [H35.62] 03/21/2009 TIA (transient ischemic attack) [G45.9] 02/24/2012 Hyperlipidemia [E78.5] Raynaud phenomenon [I73.00] 06/27/2012 GERD (gastroesophageal reflux disease) [K21.9] 06/27/2012 Adjustment reaction [F43.20] 03/31/2013 Vitamin D deficiency [E55.9] 06/20/2013 Chronic bilateral low back pain without sciatic*09/24/2015 Pars defect with spondylolisthesis [M43.10] 09/24/2015 Hypertension, essential [I10] 05/03/2017 Gastroesophageal reflux disease [K21.9] 11/26/2017 Altered bowel habits [R19.4] 11/26/2017 Diarrhea [R19.7] 11/26/2017 Hyperglycemia [R73.9] 11/29/2017 03/10/2018 LBBB (left bundle branch block) [I44.7] 03/11/2018 Diabetes mellitus type 2, controlled, without c*03/11/2018 Encounter Status:Closed by [employer], [employer] on 02/08/23 [facility] 02-01-2023 Note HNO ID: [id number] Author: Chau Jovel, DO Service: ? Author Type: Physician Type: Progress Notes Filed: 02/01/2023 4:17 PM Note Text: [facility] SECTION OF REGIONAL CARDIOLOGY [facility] OUTPATIENT VISIT DATE February 01, 2023 PRIMARY CARE PHYSICIAN: Felipe Arguelles [address] [place] [address] HISTORY OF PRESENT ILLNESS: Ms. Salinas is a 52 year old female. The patient returns for follow-up second history of a chronic left bundle branch block pattern with normal nuclear stress imaging, hypertension, hyperlipidemia with history of myalgias and type 2 diabetes. The patient has had previous myalgias to atorvastatin and now on a higher dose of Crestor at 10 mg also has myalgias mainly in her calves. She denies chest discomfort, dyspnea, orthopnea, paroxysmal nocturnal dyspnea, palpitations, near-syncope or syncope. She is looking forward to going on a cruise in February with her for their anniversary. PLAN AND RECOMMENDATIONS: The patient thankfully does not have symptoms that would suggest angina or cardiac decompensation. We discussed the continued importance of primary prevention. She obviously unfortunately has myalgias to Crestor. We will discontinue such and start pravastatin 20 mg at bedtime. We will have her follow-up after the first year and obtain fasting lipids prior to such. Dietary and lifestyle modification was otherwise reemphasized. Vitals: BP 100/74 Pulse 72 Ht 160 cm (5' 3 ) Wt 75.3 kg (166 lb) LMP 11/16/2017 SpO2 100% BMI 29.41 kg/m? Physical Exam Vitals reviewed. Constitutional: Appearance: She is well-developed. HENT: Head: Normocephalic and atraumatic. Eyes: Pupils: Pupils are equal, round, and reactive to light. Neck: Thyroid: No thyromegaly. Vascular: No JVD. Cardiovascular: Rate and Rhythm: Normal rate and regular rhythm. Heart sounds: Normal heart sounds. No murmur heard. No friction rub. No gallop. Pulmonary: Effort: Pulmonary effort is normal. No respiratory distress. Breath sounds: Normal breath sounds. No wheezing or rales. Abdominal: General: Bowel sounds are normal. Palpations: Abdomen is soft. Musculoskeletal: General: Normal range of motion. Cervical back: Normal range of motion and neck supple. Skin: General: Skin is warm and dry. Coloration: Skin is not pale. Neurological: Mental Status: She is alert and oriented to person, place, and time. Cranial Nerves: No cranial nerve deficit. Psychiatric: Behavior: Behavior normal. Thought Content: Thought content normal. Judgment: Judgment normal. Review of Systems Constitutional: Negative for activity change and fatigue. HENT: Negative for ear pain and facial swelling. Eyes: Negative for pain and discharge. Respiratory: Negative for chest tightness and shortness of breath. Cardiovascular: Positive for palpitations. Negative for chest pain and leg swelling. Gastrointestinal: Negative for abdominal pain, blood in stool, nausea and vomiting. Endocrine: Negative for cold intolerance and heat intolerance. Genitourinary: Negative for frequency and hematuria. Musculoskeletal: Negative for arthralgias and gait problem. Skin: Negative for color change, pallor and rash. Allergic/Immunologic: Negative for immunocompromised state. Neurological: Negative for dizziness, syncope, light-headedness and headaches. Hematological: Negative for adenopathy. Does not bruise/bleed easily. Psychiatric/Behavioral: Negative for confusion. The patient is not nervous/anxious. PAST MEDICAL HISTORY Diagnosis Date Abnormal maternal glucose tolerance, antepartum 2000AND 2002 History of gestational diabetes Hyperlipidemia Hypertension, essential 05/03/2017 Migraine Raynaud's phenomenon TIA (transient ischemic attack) 2011 PAST SURGICAL HISTORY Procedure Laterality Date DELIVERY ONLY 2002 , low cervical, Bilateral Tubal Ligation COLONOSCOPY FLX DX W/COLLJ SPEC WHEN PFRMD 12/06/2017 Colonoscopy ESOPHAGOGASTRODUODENOSCOPY TRANSORAL DIAGNOSTIC 08/2012,09/21/2013 EGD ESOPHAGOGASTRODUODENOSCOPY TRANSORAL DIAGNOSTIC 12/06/2017 EGD HYSTERECTOMY HX 03/2018 Kept ovaries LIG/TRNSXJ FLP TUBE ABDL/VAG APPR UNI/BI Tubal ligation PAST SURGICAL HISTORY OF 2004 Uterine Ablation for DUB TONSILLECTOMY PRIMARY/SECONDARY AGE 12/1998 Tonsillectomy Social History Tobacco Use Smoking status: Never Smokeless tobacco: Never Substance Use Topics Alcohol use: Yes Comment: SOCIALLY Drug use: No FAMILY HISTORY Problem Relation Age of Onset Asthma Mother Hypertension Father Cancer Paternal Grandmother Pancreatic Breast Cancer Maternal Grandmother Diabetes Maternal Grandfather Stroke Maternal Grandfather Stroke Paternal Grandfather ALLERGIES Allergen Reactions Codeine Vomiting Lipitor [Atorvastat* Myal (more content not included)... [facility] 02-23-2022 Miscellaneous Notes Patient phones requesting refills as follows: Requested Prescriptions Pending Prescriptions Disp Refills lisinopril (ZESTRIL, PRINIVIL) 20 mg tablet 90 tablet 2 Sig: Take 1 tablet by mouth once daily. RASHAUN-09/23/21 Labs-07/15/21 NOV-04/28/22 med filled 05/26/21 Please review and advise. Latonia Chua LPN documented in this encounter [facility] 02-10-2022 History of Present illness Narrative RADIOLOGY SERVICE PROGRESS NOTE SERVICE DATE: 02/10/2022 SERVICE TIME: 9:50 AM PATIENT IDENTITY VERIFICATION COMPLETED USING TWO (2) STANDARD IDENTIFIERS: Name and Date of confirmed by patient verbally and Name and Date of confirmed by identification band FALL SCREENING: Has the patient had 2 falls in the last year or 1 fall with injury or currently using an Ambulatory Assistive Device (Walker, Cane, Wheelchair, Crutches, etc.)? No PATIENT GENDER DATA: .female : No ALLERGIES: Reviewed and unchanged MEDICATIONS REVIEWED: Not applicable PATIENT RELEVANT IMPLANT DATA REVIEWED: Not Applicable CREATININE: Creatinine Date Value Ref Range Status 03/12/2021 0.96 0.58 - 0.96 mg/dL Final 05/02/2020 0.92 0.58 - 0.96 mg/dL Final 04/13/2020 0.95 0.58 - 0.96 mg/dL Final eGFR-All Other Races Date Value Ref Range Status 03/12/2021 >60 . Final Comment: eGFR (Estimated GFR) Units of measure: mL/min/1.73 meters squared eGFR is derived from the reexpressed MDRD Study equation using the following parameters: serum creatinine, age, gender and race. The creatinine assay has been calibrated to be traceable to IDMS. An eGFR <60 mL/min/1.73m2 for >3 months is consistent with chronic kidney disease. Refer to KDOQI guidelines for clinical interpretation. In patients with unstable renal function, e.g. those with acute kidney injury, the eGFR may not accurately reflect actual GFR. Note: On 06/07/2021, the eGFR calculation will be updated to the NKF-ASN Task Force recommended 2020 CKD-EPI creatinine equation which does not include a race variable. For more information or to access a 2020 CKD-EPI calculator, visit the National Kid[employer] website at [email or web address]/gfr _calculator. eGFR- Date Value Ref Range Status 03/12/2021 >60 Final P.O.C.T. RESULTS: N/A February 10, [address] PERFORMED: No IV SITE: Ambulatory: A peripheral IV was started in the Right antecubital site with a Angio cath: 22 gauge. POST EXAM PIV STATUS: Discontinued PROCEDURE TYPE: NM Stress: 12.9 mCi [id number] was administered IV for Rest Imaging at 8:48 by MM. 31.3 mCi [id number] was administered IV for Stress Imaging at 9:40 by MM. PATIENT DISCHARGED TO: Ambulatory patient, left NM department area. A Diagnostic radioactive procedure has taken place, with no further precautions necessary other than routine body substance precautions. More information regarding radiation safety can be found using this link: [email or web address] SIGNATURE: SANGITA Kenney PATIENT NAME: Scarlet Salinas DATE: February 10, 2022 TIME: 9:50 AM PAGER/CONTACT #: documented in this encounter [facility] 02-09-2022 Miscellaneous Notes Spoke with patient regarding reminder for stress test tomorrow and given instructions. documented in this encounter [facility] 01-14-2022 History of Present illness Narrative Images from the original note were not included. [facility] SECTION OF REGIONAL CARDIOLOGY [facility] OUTPATIENT VISIT DATE January 14, 2022 PRIMARY CARE PHYSICIAN: Felipe Arguelles [address] [place] [address] HISTORY OF PRESENT ILLNESS: Ms. Salinas is a 51 year old female. The patient returns for follow-up due to history of a left bundle branch block pattern with normal nuclear stress imaging in 2019. She has additional history/cardiac risk factors of hypertension, hyperlipidemia and diabetes. She has had problems with statins in the past causing myalgias but appears to be tolerating low-dose Crestor well with a recent LDL of 89 and marked reduction of her triglycerides. She denies chest discomfort was recently noticed increased dyspnea and some intermittent swelling of the extremities from time to time. She does not exercise on a regular basis. 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 She is lives home with her spouse. She denies orthopnea, paroxysmal nocturnal dyspnea, palpitations, near-syncope or syncope. PLAN AND RECOMMENDATIONS: The patient has symptoms that may represent angina or cardiac decompensation with multiple cardiovascular risk factors. She is a chronic persistent left bundle. At this point in time we discussed therapeutic modalities will relegate her to nuclear stress imaging performed with Lexiscan due to her left bundle. In the absence of findings we discussed the need for dietary and lifestyle modification and engagement in a gradual exercise program to potentially improve cardiovascular fitness. She is tolerating low-dose Crestor we will bump that up to 10 mg daily to try to obtain an LDL at goal of under 70. Should stress testing be normal and she continued to have symptoms despite trying to improve cardiovascular fitness, she should return for further evaluation at an earlier date than are scheduled 1 year follow-up. Generalized dietary and lifestyle modification was reemphasized to facilitate overall risk factor reduction. Vitals: BP 126/82 (BP Site: Left Arm, BP Position: Sitting, BP Cuff Size: Regular Adult) Pulse 95 Ht 160 cm (5' 3 ) Wt 74.8 kg (165 lb) LMP 11/16/2017 SpO2 100% BMI 29.23 kg/m Physical Exam Vitals reviewed. Constitutional: Appearance: She is well-developed. HENT: Head: Normocephalic and atraumatic. Eyes: Pupils: Pupils are equal, round, and reactive to light. Neck: Thyroid: No thyromegaly. Vascular: No JVD. Cardiovascular: Rate and Rhythm: Normal rate and regular rhythm. Heart sounds: Normal heart sounds. No murmur heard. No friction rub. No gallop. Pulmonary: Effort: Pulmonary effort is normal. No respiratory distress. Breath sounds: Normal breath sounds. No wheezing or rales. Abdominal: General: Bowel sounds are normal. Palpations: Abdomen is soft. Musculoskeletal: General: Normal range of motion. Cervical back: Normal range of motion and neck supple. Skin: General: Skin is warm and dry. Coloration: Skin is not pale. Neurological: Mental Status: She is alert and oriented to person, place, and time. Cranial Nerves: No cranial nerve deficit. Psychiatric: Behavior: Behavior normal. Thought Content: Thought content normal. Judgment: Judgment normal. Review of Systems Constitutional: Negative for activity change and fatigue. HENT: Negative for ear pain and facial swelling. Eyes: Negative for pain and discharge. Respiratory: Negative for chest tightness and shortness of breath. Cardiovascular: Positive for palpitations. Negative for chest pain and leg swelling. Gastrointestinal: Negative for abdominal pain, blood in stool, nausea and vomiting. Endocrine: Negative for cold intolerance and heat intolerance. Genitourinary: Negative for frequency and hematuria. Musculoskeletal: Negative for arthralgias and gait problem. Skin: Negative for color change, pallor and rash. Allergic/Immunologic: Negative for immunocompromised state. Neurological: Negative for dizziness, syncope, light-headedness and headaches. Hematological: Negative for adenopathy. Does not bruise/bleed easily. Psychiatric/Behavioral: Negative for confusion. The patient is not nervous/anxious. PAST MEDICAL HISTORY Diagnosis Date Abnormal maternal glucose tolerance, antepartum 2000AND 2002 History of gestational diabetes Hyperlipidemia Hypertension, essential 05/03/2017 Migraine Raynaud's phenomenon TIA (transient ischemic attack) 2011 PAST SURGICAL HISTORY Procedure Laterality Date DELIVERY ONLY 2002 , low cervical, Bilateral Tubal Ligation COLONOSCOPY FLX DX W/COLLJ SPEC WHEN PFRMD 12/06/2017 Colonoscopy ESOPHAGOGASTRODUODENOSCOPY TRANSORAL DIAGNOSTIC 08/2012,09/21/2013 EGD ESOPHAGOGASTRODUODENOSCOPY TRANSORAL DIAGNOSTIC 12/06/2017 EGD HYSTERECTOMY HX 03/2018 Kept ovaries LIG/TRNSXJ FLP TUBE ABDL/VAG APPR UNI/BI Tubal ligation PAST SURGICAL HISTORY OF 2004 Uterine Ablation for DUB TONSILLECTOMY PRIMARY/SECONDARY AGE 13/> 1998 Tonsillectomy Social History Tobacco Use Smoking status: Never Smokeless tobacco: Never Substance Use Topics Alcohol use: Yes Comment: SOCIALLY Drug use: No FAMILY HISTORY Problem Relation Age of Onset Asthma Mother Hypertension Father Cancer Paternal Grandmother Pancreatic Breast Cancer Maternal Grandmother Diabetes Maternal Grandfather Stroke Maternal Grandfather Stroke Paternal Grandfather ALLERGIES Allergen Reactions Codeine Vomiting Lipitor [Atorvastat* Myalgia Shellfish Derived Swelling CURRENT MEDICATIONS: dulaglutide (TRULICITY) 0.75 mg/0.5 mL pen injector Inject 0.75 mg subcutaneously one time a week. Inject dose once per week. Discard Pen After hydroCHLOROthiazide 12.5 mg capsule Take 1 capsule by mouth once daily. rosuvastatin (CRESTOR) 5 mg tablet Take 1 tablet by mouth once daily. EPINEPHrine (EPIPEN) 0.3 mg/0.3 mL auto-injector Use as directed prn. blood sugar diagnostic (BLOOD GLUCOSE TEST) test strip Test blood sugar(s) one time daily. Dx: Type 2 DM - Controlled E11.9 Insulin: No Lancets lancets Test blood sugar(s) one times daily. Dx: Type 2 DM - Controlled E11.9 Insulin: No lisinopril (ZESTRIL, PRINIVIL) 20 mg tablet Take 1 tablet by mouth once daily. Cholecalciferol, Vitamin D3, 25 mcg (1,000 unit) cap Take 1 capsule by mouth once daily. MULTIVITS,CA,MINERALS/IRON/FA (ONE-A-DAY WOMENS FORMULA ORAL) Take 1 tablet by mouth once daily. aspirin, enteric coated (ECOTRIN LOW STRENGTH) 81 mg EC tablet Take 1 tablet by mouth once daily. (Patient not taking: No sig reported) EKG performed today demonstrates sinus rhythm with a left bundle branch block pattern, similar to previous. Chau Jovel DO, FACC, FACOI Clinical and Preventive Cardiology Department of Medicine and Division of Cardiology, [facility] Web Developerwheel of fortune dealer [facility] Web Developer of Congestive Heart Failure Clinic [facility] Cardiology Office Web Developer [facility] Staff Stamp Analyst, Kevin Cote Department of Cardiovascular Medicine/[facility] [place], [facility] Clinical Grant Administrator Profressor of Medicine, [facility] - [facility] Please note: This note has been produced using speech recognition software and may contain errors related to that system including bette, punctuation, spelling, words, gender and phrases that may be inappropriate. documented in this encounter [facility] 12-24-2021 Miscellaneous Notes December 24, 2021 PID: [id number] Scarlet Salinas [address] [place] [address] Dear Ms. Salinas, We are pleased to inform you that the results of your recent breast imaging exam on 12/24/2021 are normal. Early detection of cancer is very important. We also understand recommendations regarding breast cancer screening are controversial. Please discuss with your primary care provider which strategy is best for you and whether a mammogram is right for you. Your imaging studies and report will be kept on file at [facility] as part of your permanent medical record and are available for your continuing care. Thank you for allowing us to help in meeting your health care needs. Sincerely, Dr. Canseco Interpreting Radiologist [facility] (Normal over 40) documented in this encounter [facility] 12-24-2021 History of Present illness Narrative Radiology Service Progress Note PATIENT NAME: Scarlet Salinas DATE OF SERVICE: December 24, 2021 TIME: 7:08 AM PATIENT IDENTITY VERIFICATION COMPLETED USING TWO (2) IDENTIFIERS: Name and Date of confirmed by patient verbally. FALL SCREENING: Has the patient had 2 falls in the last year or 1 fall with injury or currently using an Ambulatory Assistive Device (Walker, Cane, Wheelchair, Crutches, etc.)? No PATIENT GENDER DATA: Female. status: : No status: NO. PATIENT RELEVANT IMPLANT DATA REVIEWED: Not Applicable RADIOLOGY DEPARTMENT: Mammography PERIPHERAL IV DATA: Not applicable SIGNED BY: RT Anni(R) December 24, 2021 7:08 AM documented in this encounter [facility] 09-23-2021 History of Present illness Narrative Patient presents with: Follow Up HPI:This Team Access Model visit is a virtual encounter. It required patient-provider interaction for the medical decision making as documented below. Patient was offered a virtual/telemedicine appointment in lieu of an office visit due to recommendations to reduce patient exposure to COVID-19. Patient is aware of limitations of performing the visit without a face to face visit in the office setting and agrees. Feeling well. Has not yet gone to physical therapy. Once this slow down at home will start that. HYPERTENSION:no dizziness or chest pain. No shortness of breath. DM:sugars have been good. Rarely goes up. Highest was 189 No hypoglycemic spells. HLD:no Issues with meds. Component Latest Ref Rng & Units 06/30/2021 07/11/2021 Cholesterol, Total 156 Triglyceride 166 HDL CHOLESTEROL 38 LDL Cholesterol 89 VLDL Cholesterol 29 CK 42 - 196 U/L 46 Component Latest Ref Rng & Units 05/07/2021 Cholesterol, Total <200 mg/dL 160 Triglyceride <150 mg/dL 279 (H) HDL Cholesterol >39 mg/dL 39 (L) LDL Cholesterol <100 mg/dL 65 Non HDL Cholesterol <130 mg/dL 121 Fasting Time hrs 12 VLDL Cholesterol <30 mg/dL 56 (H) TC:HDL Ratio <5.10 4.10 LDL:HDL Ratio <2.54 1.67 Albumin 3.9 - 4.9 g/dL 4.3 Bilirubin, Total 0.2 - 1.3 mg/dL 0.6 Bilirubin, Conjug <0.2 mg/dL <0.2 Alkaline Phosphatase 34 - 123 U/L 52 AST 13 - 35 U/L 19 ALT 7 - 38 U/L 22 Protein, Total 6.3 - 8.0 g/dL 6.4 TSH 0.270 - 4.200 uU/mL 4.190 Vitamin D 25 Hydroxy 31.0 - 80.0 ng/mL 25.8 (L) MEDICATIONS: Current Outpatient Medications Medication Sig hydroCHLOROthiazide 12.5 mg capsule Take 1 capsule by mouth once daily. rosuvastatin (CRESTOR) 5 mg tablet Take 1 tablet by mouth once daily. EPINEPHrine (EPIPEN) 0.3 mg/0.3 mL auto-injector Use as directed prn. blood sugar diagnostic (BLOOD GLUCOSE TEST) test strip Test blood sugar(s) one time daily. Dx: Type 2 DM - Controlled E11.9 Insulin: No Lancets lancets Test blood sugar(s) one times daily. Dx: Type 2 DM - Controlled E11.9 Insulin: No lisinopril (ZESTRIL, PRINIVIL) 20 mg tablet Take 1 tablet by mouth once daily. Cholecalciferol, Vitamin D3, 25 mcg (1,000 unit) cap Take 1 capsule by mouth once daily. dulaglutide (TRULICITY) 0.75 mg/0.5 mL pen injector Inject 0.75 mg subcutaneously one time a week. Inject dose once per week. Discard Pen After aspirin, enteric coated (ECOTRIN LOW STRENGTH) 81 mg EC tablet Take 1 tablet by mouth once daily. (Patient not taking: Reported on 12/30/2020 ) MULTIVITS,CA,MINERALS/IRON/FA (ONE-A-DAY WOMENS FORMULA ORAL) Take 1 tablet by mouth once daily. No current facility-administered medications for this visit. ALLERGIES: ALLERGIES Allergen Reactions Codeine Vomiting Lipitor [Atorvastat* Myalgia Shellfish Derived Swelling PAST MEDICAL HISTORY Diagnosis Date Abnormal maternal glucose tolerance, antepartum 2000AND 2002 History of gestational diabetes Hyperlipidemia Hypertension, essential 05/03/2017 Migraine Raynaud's phenomenon TIA (transient ischemic attack) 2011 PAST SURGICAL HISTORY Procedure Laterality Date DELIVERY ONLY 2002 , low cervical, Bilateral Tubal Ligation COLONOSCOPY FLX DX W/COLLJ SPEC WHEN PFRMD 12/06/2017 Colonoscopy ESOPHAGOGASTRODUODENOSCOPY TRANSORAL DIAGNOSTIC 08/2012,09/21/2013 EGD ESOPHAGOGASTRODUODENOSCOPY TRANSORAL DIAGNOSTIC 12/06/2017 EGD HYSTERECTOMY HX 03/2018 Kept ovaries LIG/TRNSXJ FLP TUBE ABDL/VAG APPR UNI/BI Tubal ligation PAST SURGICAL HISTORY OF 2004 Uterine Ablation for DUB TONSILLECTOMY PRIMARY/SECONDARY AGE 12/1998 Tonsillectomy FAMILY HISTORY Problem Relation Age of Onset Asthma Mother Hypertension Father Cancer Paternal Grandmother Pancreatic Breast Cancer Maternal Grandmother Diabetes Maternal Grandfather Stroke Maternal Grandfather Stroke Paternal Grandfather Social History Tobacco Use Smoking status: Never Smoker Smokeless tobacco: Never Used Substance Use Topics Alcohol use: Yes Comment: SOCIALLY Drug use: No Reviewed current medications, allergies, past medical history, surgical history, family history and social history today. REVIEW OF SYSTEMS All other reviewed and negative other than HPI. HEALTH MAINTENANCE: Discussed covid 19 safety and recommendations if patient should become ill. Reviewed health maintenance issues today and recommended the following in detail. DILATED RETINAL EXAM due-reminded to follow up HBA1C due on 09/10/2021 MAMMOGRAM due on 11/05/2021 VITALS: LMP 11/16/2017 Last 4 Encounter Wt Readings: Date: Wt: 06/30/2021 74.3 kg (163 lb 12.8 oz) 03/17/2021 72.6 kg (160 lb) 12/30/2020 72.6 kg (160 lb) 05/31/2020 72.1 kg (159 lb) PHYSICAL EXAMINATION: Patient is alert and oriented during visit. Answers appropriately. ASSESSMENT/PLAN: 1. Controlled type 2 diabetes mellitus without complication, without long-term current use of insulin (HCC) - ICD9: 250.00, ICD10: E11.9 (primary diagnosis) Controlled. - Continue current medications - HGB A1C - CBC + DIFF - BASIC METABOLIC PNL 2. Screening breast examination - ICD9: V76.10, ICD10: Z12.39 - AMANUEL SCREENING 3. Hyperlipidemia, unspecified hyperlipidemia type - ICD9: 272.4, ICD10: E78.5 - good control - Continue current medication. 4. Hypertension, essential - ICD9: 401.9, ICD10: I10 - good control - Continue current medication(s) - Goal of BP <130/80 5. Vitamin D deficiency - ICD9: 268.9, ICD10: E55.9 - VITAMIN D 25 HYDROXY Felipe Arguelles RTO in six months and prn. documented in this encounter [facility] 08-13-2021 History of Present illness Narrative POPULATION HEALTH NAVIGATION OUTREACH Action/ Patient Outreach: Spoke with patient to schedule in RST. Pt declined RST Consult. Patient will be getting RST closer to her local area. Pt identified by name and : YES, via phone Outreach Outcome/Action Spoke to patient or caregiver: Patient declined Reason for Outreach Care Gap or Scheduling/Wellness visits Payer: Payor: [employer] / Plan: [employer] CHOICE POS II / Product Type: POS / Care Gap Reviewed:: RST Reminder: Reminder note to check Health Maintenance for items below Health Maintenance items due: ONE PNEUMOVAX PRIOR TO AGE 65 Never done HIV SCREENING Never done BP CONTROLLED (<130/80) Never done DTAP,TDAP,TD(1 - Tdap) Never done HPV TESTING due on 12/15/2019 DEPRESSION SCREENING due on 09/24/2020 DILATED RETINAL EXAM due on 01/19/2021 MAMMOGRAM due on 11/05/2021 Message Sent to Practice: No Navigation Signature: Elvi De La Cruz Pss August 13, 2021 11:57 AM documented in this encounter [facility] documented as of this encounter (statuses as of 07/14/2021) [facility] History of Past illness Narrative* Problem Noted Date Resolved Date Hyperglycemia 11/29/2017 03/10/2018 Abnormal maternal glucose tolerance, antepartum 03/02/2013 documented as of this encounter (statuses as of 08/13/2021) [address]20-2018 History of Past illness Narrative* Problem Noted Date Resolved Date Hyperglycemia 11/29/2017 03/10/2018 Abnormal maternal glucose tolerance, antepartum 03/02/2013 documented as of this encounter (statuses as of 09/23/2021) [address]20-2018 History of Past illness Narrative* Problem Noted Date Resolved Date Hyperglycemia 11/29/2017 03/10/2018 Abnormal maternal glucose tolerance, antepartum 03/02/2013 documented as of this encounter (statuses as of 10/30/2021) [address]20-2018 History of Past illness Narrative* Problem Noted Date Resolved Date Hyperglycemia 11/29/2017 03/10/2018 Abnormal maternal glucose tolerance, antepartum 03/02/2013 documented as of this encounter (statuses as of 12/25/2021) [address]20-2018 History of Past illness Narrative* Problem Noted Date Resolved Date Hyperglycemia 11/29/2017 03/10/2018 Abnormal maternal glucose tolerance, antepartum 03/02/2013 documented as of this encounter (statuses as of 12/26/2021) [address]20-2018 History of Past illness Narrative* Problem Noted Date Resolved Date Hyperglycemia 11/29/2017 03/10/2018 Abnormal maternal glucose tolerance, antepartum 03/02/2013 documented as of this encounter (statuses as of 01/14/2022) [address]20-2018 History of Past illness Narrative* Problem Noted Date Resolved Date Hyperglycemia 11/29/2017 03/10/2018 Abnormal maternal glucose tolerance, antepartum 03/02/2013 documented as of this encounter (statuses as of 02/09/2022) [address]20-2018 History of Past illness Narrative* Problem Noted Date Resolved Date Hyperglycemia 11/29/2017 03/10/2018 Abnormal maternal glucose tolerance, antepartum 03/02/2013 documented as of this encounter (statuses as of 02/11/2022) [address]20-2018 History of Past illness Narrative* Problem Noted Date Resolved Date Hyperglycemia 11/29/2017 03/10/2018 Abnormal maternal glucose tolerance, antepartum 03/02/2013 documented as of this encounter (statuses as of 02/24/2022) [address]-2018 History of Past illness Narrative* Problem Noted Date Diagnosed Date Resolved Date Hyperglycemia 11/29/2017 03/10/2018 Abnormal maternal glucose to lerance, antepartum 03/02/2013 documented as of this encounter (statuses as of 02/08/2023) [facility] note* Diagnosis Controlled type 2 diabetes mellitus without complication, without long-term current use of insulin (HCC)- Primary Screening breast examination Breast screening, unspecified Hyperlipidemia, unspecified hyperlipidemia type Hypertension, essential Unspecified essential hypertension Vitamin D deficiency Unspecified vitamin D deficiency documented in this encounter [facility] note* Diagnosis Controlled type 2 diabetes mellitus without complication, without long-term current use of insulin (HCC) documented in this encounter [facility] note* Diagnosis Screening breast examination Breast screening, unspecified documented in this encounter [facility] note* Diagnosis LBBB (left bundle branch block)- Primary Other left bundle branch block GAN (dyspnea on exertion) Other dyspnea and respiratory abnormality Hypertension, essential Unspecified essential hypertension Hyperlipidemia, unspecified hyperlipidemia type documented in this encounter [facility] note* Diagnosis LBBB (left bundle branch block) Other left bundle branch block Hypertension, essential Unspecified essential hypertension Hyperlipidemia, unspecified hyperlipidemia type GAN (dyspnea on exertion) Other dyspnea and respiratory abnormality documented in this encounter [facility] note* Diagnosis Essential hypertension Unspecified essential hypertension documented in this encounter [facility] note* Diagnosis Encounter for screening mammogram for breast cancer documented in this encounter [facility] for referral (narrative)* Diagnostic Procedure Only (Routine) - Pending Review Specialty Diagnoses / Procedures Referred By Eula enriquez Referred To Contact [facility] Diagnoses Screening breast examination Procedures AMANUEL SCREENING SCREENING MAMMOGRAPHY BI 2-VIEW BREAST INC CAD Felipe Arguelles MD [address] [place] [address] [facility] [address] [place] [address] Referral ID Status Reason Start Date Expiration Date Visits Requested Visits Authorized [id number] Pending Review Auto-Generat ed Referral 09/23/2021 2022 1 1 [facility] for referral (narrative)* Diagnostic Procedure Only (Routine) - Closed Specialty Diagnoses / Procedures Referred By Eula enriquez Referred To Contact [facility] Diagnoses Screening breast examination Procedures AMANUEL SCREENING SCREENING MAMMOGRAPHY BI 2-VIEW BREAST INC CAD Felipe Arguelles MD [address] [place] [address] [facility] [address] [place] [phone] Referral ID Status Reason Start Date Expiration Date V isits Requested Visits Authorized [id number] Closed Auto-Generate d Referral 09/23/2021 2022 1 1 [facility] for referral (narrative)* Diagnostic Procedure Only (Routine) - Authorized Specialty Diagnoses / Procedures Referred By Contac t Referred To Contact [facility] Diagnoses LBBB (left bundle branch block) Hypertension, essential Hyperlipidemia, unspecified hyperlipidemia type GAN (dyspnea on exertion) Procedures NM CARDIAC PERF STRESS/PHARM MYOCARDIAL SPECT MULTIPLE STUDIES Chau Jovel DO [address] [place] [address] Molecular [facility] Functional [facility] [address] [place] [address] Referral ID Status Reason Start Date Expiration Date Visits Requested Visits Authorized [id number] Authorized Auto-Generat ed Referral 01/14/2022 02/13/2023 1 1 * Outpatient Procedure (Routine) - Closed Specialty Diagnoses / Procedures Referred By Contac t Referred To [facility] Diagnoses LBBB (left bundle branch block) Hypertension, essential Hyperlipidemia, unspecified hyperlipidemia type Procedures ECG COMPLETE ECG ROUTINE ECG W/LEAST 12 LDS W/I&R Chau Jovel DO [address] [place] [address] [facility] [address] [place] [address] Referral ID Status Reason Start Date Expiration Date V isits Requested Visits Authorized [id number] Closed Auto-Generate d Referral 01/14/2022 01/14/2023 1 1 [facility] for referral (narrative)* Diagnostic Procedure Only (Routine) - Closed Specialty Diagnoses / Procedures Referred By Contac t Referred To Contact [facility] Diagnoses LBBB (left bundle branch block) Hypertension, essential Hyperlipidemia, unspecified hyperlipidemia type GAN (dyspnea on exertion) Procedures NM CARDIAC PERF STRESS/PHARM MYOCARDIAL SPECT MULTIPLE STUDIES Chau Jovel DO [address] [place] [address] Molecular [facility] [address] [place] [address] Referral ID Status Reason Start Date Expiration Date V isits Requested Visits Authorized [id number] Closed Auto-Generate d Referral 01/14/2022 02/13/2023 1 1 [facility] for referral (narrative)* Diagnostic Procedure Only (Routine) - Pending Review Specialty Diagnoses / Procedures Referred By Conttaras t Referred To Contact [facility] Diagnoses Encounter for screening mammogram for breast cancer Procedures AMANUEL SCREENING SCREENING MAMMOGRAPHY BI 2-VIEW BREAST INC Felipe Sam MD [address] [place] [address] [facility] [address] [place] [address] Referral ID Status Reason Start Date Expiration Date Visits Requested Visits Authorized [id number] Pending Review Auto-Generat ed Referral 03/04/2024 1 1 T [facility] for visit Narrative* Diagnostic Procedure Only (Routine) - Closed Specialty Diagnoses / Procedures Referred By Contac t Referred To Contact [facility] Diagnoses Screening breast examination Procedures AMANUEL SCREENING SCREENING MAMMOGRAPHY BI 2-VIEW BREAST INC Felipe Sam MD [address] [place] [address] [facility] [address] [place] [address] Referral ID Status Reason Start Date Expiration Date V isits Requested Visits Authorized [id number] Closed Auto-Generate d Referral 09/23/2021 2022 1 1 [facility] for visit Narrative* Diagnostic Procedure Only (Routine) - Closed Specialty Diagnoses / Procedures Referred By Contac t Referred To Contact [facility] Diagnoses LBBB (left bundle branch block) Hypertension, essential Hyperlipidemia, unspecified hyperlipidemia type GAN (dyspnea on exertion) Procedures NM CARDIAC PERF STRESS/PHARM MYOCARDIAL SPECT MULTIPLE STUDIES Chau Jovel DO [address] [place] [address] Molecular [facility] Functional [facility] [address] [place] [address] Referral ID Status Reason Start Date Expiration Date V isits Requested Visits Authorized [id number] Closed Auto-Generate d Referral 01/14/2022 02/13/2023 1 1 [facility] Summary Purpose Family History No Family History Records FoundNo Family History Records FoundNo Family History Records FoundNo Family History Records Found Advance Directives No Advanced Directives Records FoundDocuments on File Type Date Recorded 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 Advance Directives and Living Will Documents on File Type Date Recorded 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 Patel Temperature: 32.1 .Current Height: 5 feet 3 inch Referred for: RUE numbness for years. Right neck tightness. + DM. Plan: This study is design to evaluate for entrapment neuropathy, median or ulnar neuropathy, radiculopathy, or brachial plexopathy. Procedure indication, side effects, complications, risk and alternatives were explain. Patient agreed to proceed with verbal consent obtain. Patient was instructed toclean the puncture site with soap and water and put some ice pack for bruising. EMG Summary: The right median and ulnar motor and sensory nerve conduction studies were normal. Theright radial, medial and lateral antebrachial cutaneous sensory nerve conduction studies were also normal. Needle EMG of the tested muscle showed no abnormal spontaneous activity. Normal motor unit action potentials and recruitment patterns were seen. Impression: This is a normal EMG. There is NO clear electrodiagnostic evidence of a right cervical radiculopathy, brachial plexopathy, entrapment neuropathy, median or ulnar neuropathy at this time. Tyrone Santillan MD Diplomate, ABPN, NBPAS Clinical Neurophysiology, Neurology, Vascular Neurology and Sleep Medicine [place] [phone] Nota bene: Portions of this chart was created using [employer] voice recognition software. Occasional wrong-word or sound-like substitutions may have occurred due to inherent limitations of the voice recognition software. Please read the chart carefully and recognize, using context, where the substitutions have occurred. Motor NCS Nerve / Sites Muscle Latency Amplitude Distance Velocity ms mV cm m/s R Median - APB Wrist APB 3.38 10.8 7 Elbow APB 6.90 10.5 20 56.8 R Ulnar - . Wrist ADM 2.88 9.7 6.5 B.Elbow ADM 5.75 10.2 18.5 64.3 A.Elbow ADM 7.44 9.8 10 59.3 Sensory NCS Nerve / Sites Rec. Site Peak Lat Amp.1 Amp.2 Distance Norberto. d Lat.2 ms V V cm m/s ms R Radial - . Forearm Snuff 2.13 44.4 68.3 10 64.0 R Median, Ulnar - PALMAR Median Palm Wrist 1.81 54.6 77.6 8 57.3 Ulnar Palm Wrist 1.88 17.4 6.2 8 53.3 -0.06 R Lateral antebrachial cutaneous - . Elbow Forearm 1.23 8.2 10.5 12 140.5 R Medial antebrachial cutaneous - . Elbow Forearm 1.33 17.4 7.3 12 122.6 EMG Summary Table Spontaneous Activity Amplitude Duration Recruitment Activation Polyphasia Comment Muscle Nerve Roots Ins Act Fib PSW Fasc - - - - - - R. Deltoid Axillary C5-C6 Normal 0 0 0 Normal Normal Normal Normal Normal Normal R. Triceps brachii Radial C6-C8 Normal 0 0 0 Normal Normal Normal Normal Normal Normal R. Biceps brachii Musculocutaneous C5-C6 Normal 0 0 0 Normal Normal Normal Normal Normal Normal R. Pronator teres Median C6-C7 Normal 0 0 0 Normal Normal Normal Normal Normal Normal R. Extensor digitorum communis Radial C7-C8 Normal 0 0 0 Normal Normal Normal Normal Normal Normal R. First dorsal interosseous Ulnar C8-T1 Normal 0 0 0 Normal Normal Normal Normal Normal Normal R. Abductor pollicis brevis Median C8-T1 Normal 0 0 0 Normal Normal Normal Normal Normal Normal R. Cervical paraspinals Spinal C4-C8 Normal 0 0 0 Normal Normal Normal Normal Normal Normal documented in this encounter Assessments Diagnosis Numbness and tingling in right hand Disturbance of skin sensation Additional Source Comments INFORMATION SOURCE (unrecogn ized section and content) DATE CREATED AUTHOR AUTHOR'S ORGANIZ ATION 11/14/2019 [employer] DATE CREATED AUTHOR AUTHOR'S ORGANIZ ATION 04/27/2023 [facility] DATE CREATED AUTHOR AUTHOR'S ORGANIZ ATION 05/11/2023 [facility] Reason for Visit (unrecogniz ed section and content) Reason Comments Follow Up Reason Comments Established Patient Follow-Up Feet swell ing, SOB at night, chest pain Reason Comments Reminder Call Reason Onset Date Comments Refill Request 02/21/2022 Source Comments (unrecognize d section and content) In the event this informatio n is protected by the Federal Confidentiality of Alcohol and Drug Abuse Patient Records regulations: The Federal rules restrict any use of the information to criminally investigate or prosecute any alcohol or drug abuse patient.[facility] event this information is protected by the Federal Confidentiality of Alcohol and Drug Abuse Patient Records regulations: The Federal rules restrict any use of the information to criminally investigate or prosecute any alcohol or drug abuse patient.[facility] the event this information is protected by the Federal Confidentiality of Alcohol and Drug Abuse Patient Records regulations: The Federal rules restrict any use of the information to criminally investigate or prosecute any alcohol or drug abuse patient.[facility] the event this information is protected by the Federal Confidentiality of Alcohol and Drug Abuse Patient Records regulations: The Federal rules restrict any use of the information to criminally investigate or prosecute any alcohol or drug abuse patient.[facility] the event this information is protected by the Federal Confidentiality of Alcohol and Drug Abuse Patient Records regulations: The Federal rules restrict any use of the information to criminally investigate or prosecute any alcohol or drug abuse patient.[facility] the event this information is protected by the Federal Confidentiality of Alcohol and Drug Abuse Patient Records regulations: The Federal rules restrict any use of the information to criminally investigate or prosecute any alcohol or drug abuse patient.[facility] the event this information is protected by the Federal Confidentiality of Alcohol and Drug Abuse Patient Records regulations: The Federal rules restrict any use of the information to criminally investigate or prosecute any alcohol or drug abuse patient.[facility] the event this information is protected by the Federal Confidentiality of Alcohol and Drug Abuse Patient Records regulations: The Federal rules restrict any use of the information to criminally investigate or prosecute any alcohol or drug abuse patient.[facility] the event this information is protected by the Federal Confidentiality of Alcohol and Drug Abuse Patient Records regulations: The Federal rules restrict any use of the information to criminally investigate or prosecute any alcohol or drug abuse patient.[facility] the event this information is protected by the Federal Confidentiality of Alcohol and Drug Abuse Patient Records regulations: The Federal rules restrict any use of the information to criminally investigate or prosecute any alcohol or drug abuse patient.[facility] the event this information is protected by the Federal Confidentiality of Alcohol and Drug Abuse Patient Records regulations: The Federal rules restrict any use of the information to criminally investigate or prosecute any alcohol or drug abuse patient.[facility] Care Teams (unrecognized sec tion and content) 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 Relationship Specialty Start Date End Date Felipe Arguelles MD [address] [place] [address] PCP - General Family Practice [facility] [address] [place] [address] Pharmacist Pharmacy 04/13/18 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 Relationship Specialty Start Date End Date Felipe Arguelles MD [address] [place] [address] PCP - General Family Practice 06/27/12 [facility] [address] [place] [address] Pharmacist Pharmacy 04/13/18 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 Relationship Specialty Start Date End Date Felipe Arguelles MD [address] [place] [address] PCP - General Family Practice 06/27/12 [facility] [address] [place] [address] Pharmacist Pharmacy 04/13/18 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 Relationship Specialty Start Date End Date Felipe Arguelles MD [address] [place] [place] [address] PCP - General Family Practice 06/27/12 [facility] [address] [place] [address] Pharmacist Pharmacy 04/13/18 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 Relationship Specialty Start Date End Date Felipe Arguelles MD [address] [facility] [place] [address] PCP - General Family Medicine 06/27/12 [facility] [address] [place] [address] Pharmacist Pharmacy 04/13/18 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 Relationship Specialty Start Date End Date Felipe Arguelles MD [address] [place] [place] [address] PCP - General Family Medicine 06/27/12 Ashley Palm, [facility] [address] [place] [address] Pharmacist Pharmacy 04/13/18 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 Relationship Specialty Start Date End Date Felipe Arguelles MD [address] [place] [place] [address] PCP - General Family Medicine 06/27/12 Ashley Palm, [facility] [address] [place] [address] Pharmacist Pharmacy 04/13/18 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 Relationship Specialty Start Date End Date Felipe Arguelles MD [address] [place] [address] PCP - General Family Medicine 06/27/12 ArpitaTracy chavezily, [facility] [address] [place] [address] Pharmacist Pharmacy 04/13/18 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 Relationship Specialty Start Date End Date Felipe Arguelles MD [address] [place], [place] [address] PCP - General Family Medicine 06/27/12 ArpitaAshley chavez, [facility] [address] [place] [address] Pharmacist Pharmacy 04/13/18 FOR RECORDS PERTAINING TO PATIENTS WHO ARE OR HAVE BEEN ENROLLED IN A CHEMICAL DEPENDENCY/SUBSTANCEABUSE PROGRAM, SOME INFORMATION MAY BE OMITTED. This clinical summary was aggregated from multiple sources. Caution should be exercised in using it in the provision of clinical care. This summary normalizes information from multiple sources, and as a consequence, information in this document may materially change the coding, format and clinical context of patient data. In addition, data may be omitted in some cases. CLINICAL DECISIONS SHOULD BE BASED ON THE PRIMARY CLINICAL RECORDS. [facility] provides no warranty or guarantee of the accuracy or completeness of information in this document.
[2023-05-31 09:21] LABS: Absolute Lymphocyte Count 1.48 X10^3/uL (0.83-4.51); Absolute Neutrophil Count 4.3 X10^3/uL (2.0-7.7); Basophil# 0.05 X10^3/uL; Basophil% 0.8 % (0-1); Eosinophil# 0.13 X10^3/uL; Hematocrit 40.9 % (37-47); Hemoglobin 13.4 g/dL (12.0-15.0); Lymphocyte # 1.48 X10^3/ul (0.83-4.51); Lymphocyte % 22.7 % (19-41); Mean Corp Hgb Conc 32.8 g/dL (32-36); Mean Corpuscular Hgb 29.1 pg (27.0-32.0); Mean Corpuscular Volume 88.7 fL (81-99); Mean Platelet Vol. 9.7 fl (6.2-12.0); Monocyte# 0.52 X10^3/uL; NRBC Flagged by Analyzer 0 % (0-5); Neutrophil # 4.32 X10^3/uL (2.7-7.7); Neutrophil % 66.2 % (47-70); Platelet Count 315 K/mm3 (150-450); RBC Distribution Width CV 12.2 % (11.6-14.6); RBC Distribution Width SD 39.3 fl (35.1-43.9); Red Blood Count 4.61 M/mm3 (4.2-5.4); White Blood Count 6.5 K/mm3 (4.4-11.0)
[2023-05-31 09:51] LABS: Insulin 12.1 mU/L (2.6-37.6); Vitamin D,25 Hydroxy 25.6 ng/mL
[2023-05-31 09:54] LABS: Hemoglobin A1c 5.8 % (3.8-5.6)
[2023-05-31 10:00] LABS: ALB/GLOB Ratio 1.1 RATIO (0.9-2.4); AST(SGOT) 11 U/L (15-37); Alanine Aminotransfer ALT/SGPT 30 U/L (13-56); Albumin, Serum 3.7 g/dL (3.2-5.0); Alkaline Phosphatase 60 U/L (45-117); Anion Gap 6 (5-15); BUN 17 mg/dL (7-18); BUN/Creat Ratio 17.9 RATIO (10-20); Chloride 104 mmol/L (98-107); Creatinine, Serum 0.95 mg/dL (0.55-1.02); EST Glomerular Filtration Rate 66 mL/min (>60); Est Glom Filt Rate - Afr Amer 79 mL/min (>60); Globulin 3.3 g/dL (2.2-4.2); Glucose 142 mg/dL (74-106); Potassium 3.2 mmol/L (3.5-5.1); Sodium Level 139 mmol/L (136-145)
== END | disposition home or self-care (01) ==
LOC: LAB 08:39
PROVIDERS: PCP Internal Medicine; Visit Provider Internal Medicine
DX: E55.9 Vitamin D deficiency, unspecified (principal); E11.9 Type 2 diabetes mellitus without complications; I10 Essential (primary) hypertension; E88.810 Metabolic syndrome
CPT/HCPCS: 36415; 80053; 82306; 83036; 83525; 84443; 85025